=== PATIENT | male | born 1990 | race Caucasian/White ===

== ENCOUNTER 2018-01-01 12:55 | Emergency (ER) | payer SELFPAY ==
[2018-01-01 13:02] VITALS: BP 115/75
--- NOTE | 2018-01-01 13:11 | ER Document Report ---
HPI - HPI Patient complains to provider of: Anxiety Onset: Yesterday Pain Level: Denies Context: 27-year-old male [place] [facility] [place] with his cousin and now he is going to state his aunt's house and is leaving and going back to [facility] tomorrow. He takes alprazolam 1 mg 3 times a day for 7 years after his brother . His bottle is missing and so his last dose was yesterday at noon. He feels very anxious, jittery, and thinks that he is having withdrawal symptoms. Vital signs are stable. Associated Symptoms: None Exacerbated by: Other - See above Relieved by: Denies - ROS ROS below otherwise negative: Yes Systems Reviewed and Negative: Yes All other systems reviewed and negative Past Medical History - General Information source: Patient - Social History Smoking Status: Current Every Day Smoker Frequency of alcohol use: None Drug Abuse: None Lives with: Family Family History: Reviewed & Not Pertinent Patient has suicidal ideation: No Patient has homicidal ideation: No - Medical History Medical History: Negative Surgical Hx: Negative Vertical Provider Document - CONSTITUTIONAL Agree With Documented VS: Yes Exam Limitations: No Limitations General Appearance: No Apparent Distress - INFECTION CONTROL TRAVEL OUTSIDE OF THE [place] IN LAST 30 DAYS: No - HEENT HEENT: Normal ENT Exam - NECK Neck: Supple - RESPIRATORY Respiratory: Breath Sounds Normal, No Respiratory Distress - CARDIOVASCULAR Cardiovascular: Regular Rate, Regular Rhythm - MUSCULOSKELETAL/EXTREMETIES Musculoskeletal/Extremeties: MAEW - NEURO Level of Consciousness: Awake, Alert, Agitated Course - Vital Signs Vital signs: Temp Pulse Resp BP Pulse Ox 98.2 F 52 L 20 115/75 100 01/01/18 12:59 01/01/18 12:59 01/01/18 12:59 01/01/18 12:59 01/01/18 12:59 Discharge - Discharge Clinical Impression: Anxiety Condition: Good Disposition: HOME, SELF-CARE Instructions: Anxiety ([facility]) Additional Instructions: See your doctor when you get home for more presently M Return to the emergency room any concerns Prescriptions: Alprazolam 1 mg PO TIDP PRN #9 tablet PRN Reason:
[2018-01-01] MEDS ORDERED: ALPRAZOLAM 0.5 MG TABLET PO ONE (13:22)
== END 2018-01-01 13:34 | disposition home or self-care (01) ==
LOC: ER 12:55
DX: F41.9 Anxiety disorder, unspecified (principal); F17.200 Nicotine dependence, unspecified, uncomplicated
CPT/HCPCS: 99283